=== PATIENT | male | born 1965 | race Caucasian/White ===

== ENCOUNTER 2016-08-10 13:44 | Inpatient (IN) | payer OTHER ==
[~2016-08-10] VITALS: Ht 190.5 cm; Wt 93.5 kg
[~2016-08-10 13:44] MED LIST: CLARITIN10 MG PO; KEFLEX500 MG PO
[2016-08-10 13:58] VITALS: BP 157/94
[2016-08-10 14:19] LABS: BASO % 0.8 % (0.0-1.0); EOS # 0.3 10*3/uL (0.0-0.4); EOS % 4.8 % (1.0-4.0); HEMATOCRIT 42.2 % (42.0-52.0); HEMOGLOBIN 14.1 g/dl (14.0-18.0); LYMPH # 1.1 10*3/uL (1.3-4.4); LYMPH % 21.3 % (27.0-41.0); MEAN CELL VOLUME 94.2 fl (80.0-94.0); MEAN CORPUSCULAR HGB 31.5 pg (27.0-31.0); MEAN CORPUSCULAR HGB CONC 33.4 g/dl (33.0-37.0); MEAN PLATELET VOLUME 8.7 fl (9.6-12.3); MONO # 0.5 10*3/uL (0.1-1.0); MONO % 8.9 % (3.0-9.0); NEUT # 3.3 10*3/uL (2.3-7.9); NEUT % 63.4 % (47.0-73.0); PLATELET COUNT AUTOMATED 219 10*3/uL (130-400); RED BLOOD COUNT 4.48 10*6/uL (4.50-5.90); RED CELL DISTRI WIDTH 13.6 % (0-14.5); WHITE BLOOD COUNT 5.3 10*3/uL (4.8-10.8)
[2016-08-10 14:32] LABS: INTERNATIONAL NORM RATIO 0.9 (2.0-3.5)
[2016-08-10 14:44] LABS: ALBUMIN 4.2 gm/dl (3.1-4.5); ALKALINE PHOSPHATASE 121 U/L (45-117); BILIRUBIN, TOTAL 0.5 mg/dl (0.2-1.0); BUN 11 mg/dl (7-24); C-REACTIVE PROTEIN 0.49 MG/DL (0-0.3); CARBON DIOXIDE 29 mmol/L (21-32); CHLORIDE 104 mmol/L (98-107); CPK 142 U/L (39-308); EST GLOM FILT AFRICAN AMERICAN > 60 ml/min; GLUCOSE 141 mg/dL (65-99); MAGNESIUM 2.3 mg/dL (1.5-2.1); POTASSIUM 3.6 mmol/L (3.5-5.1); SGOT/AST 36 IU/L (3-35); SGPT/ALT 42 U/L (12-78); SODIUM 142 mmol/L (136-145); TOTAL PROTEIN 7.8 gm/dL (6.4-8.2)
[2016-08-10 14:50] LABS: TROPONIN I < 0.015 ng/ml (<0.045)
[2016-08-10 16:17] LABS: LA>2 REFLEX 2 HR DRAW NOW
[2016-08-10 16:53] VITALS: BP 149/90
[2016-08-10 17:41] VITALS: BP 131/67
[2016-08-10 18:47] LABS: CKMB 1.3 ng/ml (0.5-3.6); CPK 145 U/L (39-308)
[2016-08-10 18:51] LABS: TROPONIN I < 0.015 ng/ml (<0.045)
[2016-08-10 20:00] VITALS: BP 140/90
[2016-08-11] VITALS: BP 128/78
[2016-08-11 00:08] LABS: PROTHROMBIN TIME 10.5 SECONDS (9.0-12.4)
[2016-08-11 00:28] LABS: CKMB 0.8 ng/ml (0.5-3.6); CPK 106 U/L (39-308); TROPONIN I < 0.015 ng/ml (<0.045)
[2016-08-11 07:08] LABS: BASO # 0.1 10*3/uL (0.0-0.1); BASO % 1.3 % (0.0-1.0); EOS # 0.4 10*3/uL (0.0-0.4); HEMATOCRIT 39.1 % (42.0-52.0); LYMPH # 1.9 10*3/uL (1.3-4.4); LYMPH % 35.7 % (27.0-41.0); MEAN CELL VOLUME 94.4 fl (80.0-94.0); MEAN CORPUSCULAR HGB 31.4 pg (27.0-31.0); MEAN CORPUSCULAR HGB CONC 33.2 g/dl (33.0-37.0); MEAN PLATELET VOLUME 9.3 fl (9.6-12.3); MONO # 0.4 10*3/uL (0.1-1.0); MONO % 7.4 % (3.0-9.0); NEUT # 2.6 10*3/uL (2.3-7.9); PLATELET COUNT AUTOMATED 214 10*3/uL (130-400); RED BLOOD COUNT 4.14 10*6/uL (4.50-5.90); RED CELL DISTRI WIDTH 13.9 % (0-14.5); WHITE BLOOD COUNT 5.4 10*3/uL (4.8-10.8)
[2016-08-11 07:15] LABS: CPK 96 U/L (39-308)
[2016-08-11 07:21] LABS: CKMB < 0.5 ng/ml (0.5-3.6); TROPONIN I < 0.015 ng/ml (<0.045)
[2016-08-11 07:41] LABS: ALBUMIN 3.4 gm/dl (3.1-4.5); ALKALINE PHOSPHATASE 103 U/L (45-117); BILIRUBIN, TOTAL 0.3 mg/dl (0.2-1.0); BUN 12 mg/dl (7-24); CARBON DIOXIDE 29 mmol/L (21-32); CHLORIDE 107 mmol/L (98-107); CHOLESTEROL 151 mg/dL (<200); EST GLOM FILT AFRICAN AMERICAN > 60 ml/min; GLUCOSE 93 mg/dL (65-99); MAGNESIUM 2.3 mg/dL (1.5-2.1); PHOSPHOROUS 2.6 mg/dL (2.5-4.9); SGOT/AST 29 IU/L (3-35); SGPT/ALT 37 U/L (12-78); SODIUM 145 mmol/L (136-145); TRIGLYCERIDES 135 mg/dl (<150); VLDL CHOLESTEROL 27 mg/dL (6-40)
[2016-08-11 07:43] LABS: PROTHROMBIN TIME 10.6 SECONDS (9.0-12.4)
[2016-08-11 07:47] LABS: FREE T4 0.95 ng/dl (0.76-1.46); HDL CHOLESTEROL 41 mg/dl (40-60); LDL CHOLESTEROL 83 mg/dL (9-159); TOTAL PROTEIN 6.8 gm/dL (6.4-8.2)
[2016-08-11 08:00] VITALS: BP 138/84
[2016-08-11 08:36] LABS: VITAMIN D, 25-HYDROXY 13.8 ng/mL (30-100)
[2016-08-11 09:27] LABS: FOLIC ACID 7.19 ng/mL (>5.38)
[2016-08-11 12:00] VITALS: BP 129/81
[2016-08-11 16:00] VITALS: BP 122/73
[2016-08-11 20:00] VITALS: BP 122/88
[2016-08-12] VITALS: BP 130/76
[2016-08-12 06:27] LABS: PROTHROMBIN TIME 10.8 SECONDS (9.0-12.4)
[2016-08-12 08:00] VITALS: BP 144/82
[2016-08-12] MEDS ORDERED: XARELTO STARTER20 MG PO (10:24)
[2016-08-12 12:00] VITALS: BP 127/74
[2016-08-14 14:06] LABS: ANTI-THROMBIN III ACTIVITY 98 % (75-135); LUPUS DRVVT 51.7 sec (0.0-44.0); PROTEIN S, FREE 137 % (57-157); PROTEIN S, TOTAL 124 % (60-150); PTT-LA 45.4 sec (0.0-43.6); PTT-LA MIX 41.6 sec (0.0-40.6)
[2016-08-14 18:09] LABS: LUPUS REFLEX INTERPRETATION Comment: (.)
== END 2016-08-12 14:54 | disposition home or self-care (01) | DRG 300 ==
LOC: ED 13:44 → EDHOLD 16:42 → 4E 16:42
PROVIDERS: Hospitalist; Internal Medicine; Student in an Organized Health Care Education/Training Program
DX: I82.402 Acute embolism and thrombosis of unspecified deep veins of left lower extremity (principal); E87.2 Acidosis; R73.9 Hyperglycemia, unspecified; E83.41 Hypermagnesemia; Z83.3 Family history of diabetes mellitus; Z82.49 Family history of ischemic heart disease and other diseases of the circulatory system

== ENCOUNTER → 2016-08-16 | Outpatient (CLI) | payer OTHER ==
[~2016-08-16] MED LIST changes: +XARELTO STARTER20 MG PO
== END | disposition home or self-care (01) ==
LOC: US 18:00
DX: E04.9 Nontoxic goiter, unspecified (principal)

== ENCOUNTER 2017-08-30 16:49 | Emergency (ER) | payer OTHER ==
[~2017-08-30] VITALS: Ht 187.9 cm; Wt 90.7 kg
[2017-08-30 17:03] LABS: BASO % 0.4 % (0.0-1.0); EOS # 0.1 10*3/uL (0.0-0.4); EOS % 1.4 % (1.0-4.0); HEMATOCRIT 43.8 % (42.0-52.0); HEMOGLOBIN 14.8 g/dl (14.0-18.0); LYMPH # 1.1 10*3/uL (1.3-4.4); LYMPH % 14.5 % (27.0-41.0); MEAN CELL VOLUME 94.2 fl (80.0-94.0); MEAN CORPUSCULAR HGB 31.8 pg (27.0-31.0); MEAN CORPUSCULAR HGB CONC 33.8 g/dl (33.0-37.0); MONO # 0.5 10*3/uL (0.1-1.0); MONO % 6.2 % (3.0-9.0); NEUT # 5.6 10*3/uL (2.3-7.9); NEUT % 77.2 % (47.0-73.0); PLATELET COUNT AUTOMATED 187 10*3/uL (130-400); RED BLOOD COUNT 4.65 10*6/uL (4.50-5.90); RED CELL DISTRI WIDTH 13.2 % (0-14.5); WHITE BLOOD COUNT 7.3 10*3/uL (4.8-10.8)
[2017-08-30 17:11] LABS: ACT PARTIAL THROMBO TIME 18.7 SECONDS (20.8-31.5); INTERNATIONAL NORM RATIO 0.9 (2.0-3.5)
[2017-08-30 17:24] LABS: ALKALINE PHOSPHATASE 113 U/L (45-117); BUN 16 mg/dl (7-24); CHLORIDE 107 mmol/L (98-107); SGOT/AST 45 IU/L (3-35); SGPT/ALT 67 U/L (12-78); SODIUM 141 mmol/L (136-145)
[2017-08-30 17:27] LABS: TROPONIN I 0.131 ng/ml (<0.045)
== END 2017-08-30 17:29 | disposition short-term general hospital (02) ==
LOC: ED 16:49
PROVIDERS: Student in an Organized Health Care Education/Training Program
DX: I21.29 ST elevation (STEMI) myocardial infarction involving other sites (principal); Z86.718 Personal history of other venous thrombosis and embolism

== ENCOUNTER → 2018-01-22 | Outpatient (CLI) | payer OTHER ==
[~2018-01-22] MED LIST changes: +ALDACTONE25 MG PO; +ASPIRIN CHEWABL81 MG PO; +ATORVASTATIN CA40 M1 PO; +BRILINTA90 M1 PO; +ENTRESTO 49 MG1 EACH PO; +METOPROLOL SUCC50 M1 PO; +PANTOPRAZOLE SO40 MG PO
[2018-01-22 09:26] LABS: BASO # 0.1 10*3/uL (0.0-0.1); BASO % 0.7 % (0.0-1.0); EOS # 0.2 10*3/uL (0.0-0.4); EOS % 3.3 % (1.0-4.0); HEMATOCRIT 45.4 % (42.0-52.0); HEMOGLOBIN 14.7 g/dl (14.0-18.0); LYMPH # 1.9 10*3/uL (1.3-4.4); LYMPH % 25.5 % (27.0-41.0); MEAN CORPUSCULAR HGB 31.1 pg (27.0-31.0); MEAN CORPUSCULAR HGB CONC 32.4 g/dl (33.0-37.0); MEAN PLATELET VOLUME 9.6 fl (9.6-12.3); MONO # 0.6 10*3/uL (0.1-1.0); MONO % 7.8 % (3.0-9.0); NEUT # 4.6 10*3/uL (2.3-7.9); NEUT % 62.3 % (47.0-73.0); PLATELET COUNT AUTOMATED 208 10*3/uL (130-400); RED BLOOD COUNT 4.73 10*6/uL (4.50-5.90); RED CELL DISTRI WIDTH 13.3 % (0-14.5); WHITE BLOOD COUNT 7.3 10*3/uL (4.8-10.8)
[2018-01-22 10:05] LABS: ALKALINE PHOSPHATASE 130 U/L (45-117); BUN 10 mg/dl (7-24); CHLORIDE 105 mmol/L (98-107); CREATININE 1.18 mg/dL (0.70-1.30); POTASSIUM 4.5 mmol/L (3.5-5.1); SGOT/AST 18 IU/L (3-35); SGPT/ALT 27 U/L (12-78); SODIUM 140 mmol/L (136-145); TOTAL PROTEIN 7.8 gm/dL (6.4-8.2)
== END | disposition home or self-care (01) ==
LOC: LAB 08:53
PROVIDERS: Internal Medicine Advanced Heart Failure and Transplant Cardiology; Nurse Practitioner Family
DX: I25.10 Atherosclerotic heart disease of native coronary artery without angina pectoris (principal); E83.41 Hypermagnesemia; E78.4 Other hyperlipidemia; I50.22 Chronic systolic (congestive) heart failure; I25.5 Ischemic cardiomyopathy

== ENCOUNTER → 2018-02-19 | Outpatient (CLI) | payer OTHER | END | disposition home or self-care (01) | LOC: LAB 11:49 | DX: I50.22 Chronic systolic (congestive) heart failure (principal); I25.5 Ischemic cardiomyopathy ==

== ENCOUNTER → 2018-02-20 | Outpatient (CLI) | payer OTHER ==
[2018-02-20 13:19] LABS: BUN 16 mg/dl (7-24); CHLORIDE 106 mmol/L (98-107); CREATININE 1.19 mg/dL (0.70-1.30); POTASSIUM 4.1 mmol/L (3.5-5.1); SODIUM 140 mmol/L (136-145)
== END | disposition home or self-care (01) ==
LOC: LAB 12:31
DX: I50.9 Heart failure, unspecified (principal)

== ENCOUNTER 2018-03-01 18:38 | Inpatient (IN) | payer OTHER ==
[~2018-03-01] VITALS: Ht 187.9 cm; Wt 96.8 kg
--- NOTE | ~2018-03-01 | PR ---
[place], [place] PROGRESS NOTE NAME: HUMBERTO BARBOSA UNIT #: [id number] ROOM: 403 DOCTOR: JADA TINOCO MD BIRTHDATE: [birth year] DOS: 03/03/2018 CARDIOLOGY PROGRESS NOTE SUBJECTIVE: The patient was seen today, 03/03/2018, in the Cardiology Department just prior to his stress test. He is a 52-year-old man with a history of a myocardial infarction in 08/2017 and subsequent ischemic cardiomyopathy. The patient has felt well since yesterday. His EKG shows no acute changes and his cardiac biomarkers have remained negative. PHYSICAL EXAMINATION: VITAL SIGNS: Today, his pulse is 72 and regular, blood pressure is 102/60. He weighs 96.8 kg and has a body mass index of 27.4. NECK: Supple. He has no jugular distention. Carotids are full. LUNGS: Respirations are unlabored. His chest is clear to auscultation and percussion. HEART: Has a regular rhythm. He has an S4 gallop. I did not hear an S3 today. ABDOMEN: Soft. EXTREMITIES: Showed no edema. IMPRESSION: 1. Atypical chest pain. The patient shows no sign of acute coronary syndrome. 2. History of coronary artery disease, status post extensive anterior wall myocardial infarction complicated by left ventricular dysfunction and left ventricular apical thrombus in 08/2017. 3. Ischemic cardiomyopathy with limited left ventricular systolic function. PLAN: We will proceed with an exercise myocardial perfusion study today. If that shows no evidence for ischemia, he can be discharged for further management as an outpatient. At this point; however, I believe that he has achieved maximal tolerated doses of appropriate guideline directed medical therapies. [facility] and I thank the hospitalist physicians for asking our advice regarding the patient's care. [place], [place] PROGRESS NOTE NAME: DONN BARBOSASWORTH Reggie UNIT #: [id number] ROOM: 403 DOCTOR: JADA TINOCO MD BIRTHDATE: [birth year] JADA TINOCO MD CM:PNTRANS 0 1500 JADA TINOCO MD 03/03/18 1612 interface
--- NOTE | ~2018-03-01 | EKG ---
[place], [place] ELECTROCARDIOGRAM REPORT NAME: HUMBERTO BARBOSA UNIT #: [id number] ROOM: 411 DOCTOR: CAROLIN DRAFT REPORT BIRTHDATE: [birth year] [facility] Test Date: 2018-03-01 Test Time: 21:45:29 Pat Name: HUMBERTO BARBOSA Department: Room: 411 Gender: M Cost Analyst: Catracho Romo : 1965 Requested By: MARIE VELÁSQUEZ DNP Order Number: [id number] Reading MD: Catracho Rangel MD Measurements Intervals [place] Rate: 59 P: 24 [place]: 152 QRS: -30 QRSD: 83 T: 103 QT: 389 QTc: 386 Interpretive Statements Sinus rhythm Probable left atrial enlargement Left axis deviation Low voltage, precordial leads Consider anterior infarct Nonspecific T abnormalities, lateral leads No change from earlier ECG this date. Electronically Signed On 03-02-2018 13:51:56 PST by Catracho Rangel MD CM:EKGRPT:ELECTROCARDIOGRAM REPORT 1351 MARIE VELÁSQUEZ DNP EPIPHANY DRAFT REPORT MARIE VELÁSQUEZ DNP
--- NOTE | ~2018-03-01 | EKG ---
[place], [place] ELECTROCARDIOGRAM REPORT NAME: HUMBERTO BARBOSA UNIT #: [id number] ROOM: 411 DOCTOR: CAROLIN DRAFT REPORT BIRTHDATE: [birth year] [facility] Test Date: 2018-03-01 Test Time: 18:53:56 Pat Name: HUMBERTO BARBOSA Department: Room: 411 Gender: M Financial Director: Binh Henry : 1965 Requested By: MUNDO ALEGRIA Order Number: [id number] Reading MD: Catracho Rangel MD Measurements Intervals [place] Rate: 84 P: 42 [place]: 155 QRS: 96 QRSD: 97 T: 81 QT: 391 QTc: 463 Interpretive Statements Sinus rhythm Anterior infarct, old Baseline wander in lead(s) V2 No change from earlier ECG this date. Electronically Signed On 03-02-2018 13:51:03 PST by Catracho Rangel MD CM:EKGRPT:ELECTROCARDIOGRAM REPORT 1853 1351 MUNDO COE DRAFT REPORT MUNDO ALEGRIA MD
--- NOTE | ~2018-03-01 | EKG ---
[place], [place] ELECTROCARDIOGRAM REPORT NAME: HUMBERTO BARBOSA UNIT #: [id number] ROOM: 411 DOCTOR: CAROLIN DRAFT REPORT BIRTHDATE: [birth year] [facility] Test Date: 2018-03-01 Test Time: 18:39:58 Pat Name: HUMBERTO BARBOSA Department: Room: 411 Gender: M Solar Installer Pv: Catracho Romo : 1965 Requested By: MUNDO ALEGRIA Order Number: [id number] Reading MD: Catracho Rangel MD Measurements Intervals [place] Rate: 94 P: 44 [place]: 146 QRS: 102 QRSD: 85 T: 75 QT: 361 QTc: 452 Interpretive Statements Sinus rhythm Probable left atrial enlargement Anterior infarct, old Electronically Signed On 03-02-2018 13:50:24 PST by Catracho Rangel MD CM:EKGRPT:ELECTROCARDIOGRAM REPORT 1839 1350 MUNDO COE DRAFT REPORT MUNDO ALEGRIA MD
--- NOTE | ~2018-03-01 | CON ---
[place], [place] REPORT OF CONSULTATION NAME: HUMBERTO BARBOSA UNIT #: [id number] ROOM: 411 DOCTOR: JADA TINOCO MD BIRTHDATE: [birth year] DOS: 03/02/2018 CARDIOLOGY CONSULTATION REASON FOR CONSULTATION: Chest pain. HISTORY OF PRESENT ILLNESS: The patient was seen at his bedside with his in attendance today, 03/02/2018 for evaluation of chest pain. He is a 52-year-old man who initially presented on 08/30/2017 with severe chest pain. He was found to have evidence for an acute anterior ST elevation myocardial infarction and was sent by helicopter to [facility], where he was taken directly to the catheterization laboratory. Dr. David Tong did catheterization and found 100% proximal LAD stenosis and an ejection fraction of 35%. He had no other significant coronary disease. He underwent placement of a 2.5 mm balloon followed by placement of a 3.5 x 18 mm drug-eluting stent. An echocardiogram 09/01/2017 showed that his ejection fraction was 35-40% with a laminated apical thrombus. He was treated with Xarelto, aspirin and Brilinta. A followup echocardiogram on 12/16/2017 showed mild left ventricular enlargement with an ejection fraction between 25 and 30%. He also had stage 3 diastolic relaxation abnormalities. A laminated ventricular thrombus was placed at the apex. The patient has been placed on Entresto and this has been titrated up to the target dose of Entresto 98/103 one pill twice a day. He has also been placed on metoprolol succinate 50 mg once a day at bedtime. He did not tolerate higher doses because of bradycardia and lightheadedness. We have been increasing his medications slowly because of low blood pressure. He was seen by a heart failure specialist, Dr. Boris Henson on 01/13/2018 and she agreed with our plan. He was doing reasonably well and noticed less dyspnea. The patient was well until yesterday. He ate some hot wings and a chili dog and subsequently developed epigastric pain with radiation into his chest. He felt that it was heartburn and states that he has had heartburn in the past, but typically this would resolve if he drank some fluids and burped. Yesterday, the pain persisted and he became concerned. He therefore presented to the Emergency Room. Since admission, his pains have resolved spontaneously. He has no acute EKG changes or any elevation of cardiac troponin. PAST MEDICAL HISTORY: Includes: 1. Strong family history of atherosclerotic heart disease. 2. Presentation with acute anterior ST elevation ME on 08/30/2017. 3. Catheterization 08/30/2017, left main and circumflex free of disease. Right coronary artery dominant with mild disease. LAD 100% proximally occluded. Ejection fraction 35%. The patient underwent percutaneous intervention utilizing a 2.5 mm balloon followed by a 3.5 x 18 mm drug-eluting Campbell stent. 4. Echocardiogram 09/01/2017, ejection fraction of 35-40% with laminated apical thrombus. The patient placed on rivaroxaban and aspirin was stopped at that point. [place], [place] REPORT OF CONSULTATION NAME: HUMBERTO BARBOSA UNIT #: [id number] ROOM: 411 DOCTOR: JADA TINOCO MD BIRTHDATE: [birth year] 5. Echocardiogram 12/16/2017, mild left ventricular enlargement with ejection fraction 25-30%, stage 3 diastolic relaxation abnormalities, akinesis of the anterior wall septum and apex with laminated ventricular thrombus present, likely to be organized. 6. History of gastroesophageal reflux disease. REVIEW OF SYSTEMS: The patient denies diplopia, loss of vision, lightheadedness or syncope. He denies any focal weakness. He denies nausea or vomiting. He did have the epigastric pain and pressure noted above. He denies fevers, chills, sweats or recent weight change. He denies orthopnea or PND. He denies any radiation of the discomfort and specifically denies any throat pain or radiation into his left arm as was experienced with his ME. He denies palpitations, lightheadedness, syncope, orthopnea or PND. He denies any pedal edema. He denies hemoptysis or hematemesis. He denies change in bowel or bladder habits. He denies blood in his stools or urine. He denies any focal weakness. He denies heat or cold intolerance. He denies polyuria or polydipsia. The remainder of the review of systems is negative except as noted above. MEDICATIONS PRIOR TO ADMISSION: Aspirin 81 mg daily, ticagrelor 90 mg b.i.d., spironolactone 25 mg daily, metoprolol succinate 50 mg at bedtime, atorvastatin 40 mg at bedtime, Entresto 98/103 one tablet b.i.d. ALLERGIES: The patient has no known drug allergies. FAMILY HISTORY: Positive for multiple family members with early coronary disease. SOCIAL HISTORY: The patient is and lives with his . He does work doing physical work. He does not smoke or consume alcohol. PHYSICAL EXAMINATION: GENERAL: The patient is a well-nourished white male who is awake, alert and oriented. VITAL SIGNS: Pulse is 58 and regular, blood pressure is 106/72. He is afebrile. He weighs 96.8 kg and has a body mass index of 27.4. HEENT: Normocephalic and atraumatic. Extraocular muscles are intact. Sclerae are clear. Pupils are equal, round and react to light. The oral mucosa is moist. Tongue is midline. NECK: Supple. He has no jugular distention. Carotids are full. He has no bruits. He has no neck or supraclavicular masses, and no thyromegaly. LUNGS: Respirations are unlabored. His chest is clear to auscultation and percussion. He has no presacral edema or chest wall tenderness. CARDIOVASCULAR: His heart has a regular rhythm. He has a fourth heart sound. The PMI is not displaced laterally. He has a fourth heart sound, but no third heart sound or murmur. There is no precordial heave, lift or thrill. ABDOMEN: Soft and normally active without masses, organomegaly or bruits. EXTREMITIES: Showed no edema. Peripheral pulses were easily palpated in the feet. [place], [place] REPORT OF CONSULTATION NAME: HUMBERTO BARBOSA UNIT #: [id number] ROOM: 411 DOCTOR: JADA TINOCO MD BIRTHDATE: [birth year] DIAGNOSTIC DATA: I reviewed his electrocardiogram, which showed sinus rhythm, left atrial enlargement and evidence for an old anterior wall myocardial infarction. IMPRESSIONS: 1. Atypical chest pain. The patient shows no signs of any acute coronary syndrome. 2. History of coronary artery disease status post extensive anterior wall myocardial infarction complicated by left ventricular dysfunction and left ventricular apical thrombus. 3. Ischemic cardiomyopathy with limited left ventricular systolic function. PLAN: The patient has been titrated up to I believe maximally tolerated doses of Sacubitril and metoprolol. He is also on spironolactone, aspirin, etc. We will continue to monitor him today and plan an exercise myocardial perfusion study tomorrow. If that shows no evidence for ischemia, then he can probably be discharged after that. [facility] Cardiology and I thank the hospitalist physicians for asking our advice regarding the patient's care. JADA TINOCO MD CM:CONSTR:REPORT OF CONSULTATION 1111 03/03/18 0020 interface
--- NOTE | ~2018-03-01 | EKG ---
[place], [place] ELECTROCARDIOGRAM REPORT NAME: HUMBERTO BARBOSA UNIT #: [id number] ROOM: 411 DOCTOR: CAROLIN DRAFT REPORT BIRTHDATE: [birth year] [facility] Test Date: 2018-03-02 Test Time: 00:38:14 Pat Name: HUMBERTO BARBOSA Department: Room: 411 Gender: M Web Development Manager: Catracho Romo : 1965 Requested By: MUNDO ALEGRIA Order Number: [id number] Reading MD: Catracho Rangel MD Measurements Intervals [place] Rate: 49 P: 27 [place]: 154 QRS: 45 QRSD: 83 T: 94 QT: 451 QTc: 408 Interpretive Statements Sinus bradycardia Probable left atrial enlargement Anterior infarct, old No change from earlier ECG this date. Electronically Signed On 03-02-2018 13:53:26 PST by Catracho Rangel MD CM:EKGRPT:ELECTROCARDIOGRAM REPORT 0038 1353 MUNDO ALEGRIA MD EPIPHPARKER DRAFT REPORT MUNDO ALEGRIA MD
[~2018-03-01 18:38] MED LIST changes: -ALDACTONE25 MG PO; -ASPIRIN CHEWABL81 MG PO; -ATORVASTATIN CA40 M1 PO; -BRILINTA90 M1 PO; -ENTRESTO 49 MG1 EACH PO; -METOPROLOL SUCC50 M1 PO; -PANTOPRAZOLE SO40 MG PO
[2018-03-01 18:40] VITALS: BP 140/95
[2018-03-01 19:05] VITALS: BP 116/76
[2018-03-01 19:05] LABS: BASO # 0.1 10*3/uL (0.0-0.1); BASO % 0.9 % (0.0-1.0); EOS # 0.2 10*3/uL (0.0-0.4); EOS % 3.6 % (1.0-4.0); HEMATOCRIT 43.6 % (42.0-52.0); HEMOGLOBIN 14.4 g/dl (14.0-18.0); LYMPH # 1.8 10*3/uL (1.3-4.4); LYMPH % 27.4 % (27.0-41.0); MEAN CELL VOLUME 95.8 fl (80.0-94.0); MEAN CORPUSCULAR HGB 31.6 pg (27.0-31.0); MEAN PLATELET VOLUME 9.6 fl (9.6-12.3); MONO # 0.8 10*3/uL (0.1-1.0); MONO % 11.8 % (3.0-9.0); NEUT # 3.6 10*3/uL (2.3-7.9); PLATELET COUNT AUTOMATED 213 10*3/uL (130-400); RED BLOOD COUNT 4.55 10*6/uL (4.50-5.90); RED CELL DISTRI WIDTH 14.3 % (0-14.5); WHITE BLOOD COUNT 6.5 10*3/uL (4.8-10.8)
[2018-03-01 19:16] LABS: ACT PARTIAL THROMBO TIME 20.2 SECONDS (20.8-31.5)
[2018-03-01 19:21] LABS: ALBUMIN 4.1 gm/dl (3.1-4.5); ALKALINE PHOSPHATASE 126 U/L (45-117); BUN 16 mg/dl (7-24); CHLORIDE 108 mmol/L (98-107); POTASSIUM 3.9 mmol/L (3.5-5.1); SGOT/AST 20 IU/L (3-35); SGPT/ALT 27 U/L (12-78); SODIUM 142 mmol/L (136-145); TOTAL PROTEIN 8.3 gm/dL (6.4-8.2)
[2018-03-01 19:27] VITALS: BP 111/76
[2018-03-01 19:30] LABS: TROPONIN I < 0.015 ng/ml (<0.045)
[2018-03-01 20:12] VITALS: BP 120/83
[2018-03-01] MEDS ORDERED: ATORVASTATIN CA40 M1 PO (20:16)
[2018-03-01] MEDS ORDERED: ASPIRIN CHEWABL81 MG PO (20:16)
[2018-03-01] MEDS ORDERED: METOPROLOL SUCC50 M1 PO (20:17)
[2018-03-01] MEDS ORDERED: BRILINTA90 M1 PO (20:18)
[2018-03-01] MEDS ORDERED: ALDACTONE25 MG PO (20:18)
[2018-03-01] MEDS ORDERED: ENTRESTO 49 MG1 EACH PO (20:18)
[2018-03-02] VITALS: BP 106/72
[2018-03-02 08:05] VITALS: BP 100/70
[2018-03-02 12:00] VITALS: BP 90/60
[2018-03-02 16:00] VITALS: BP 101/69
[2018-03-02 20:00] VITALS: BP 101/66
[2018-03-03] VITALS: BP 90/63
[2018-03-03 08:00] VITALS: BP 102/60
[2018-03-03 12:00] VITALS: BP 91/59
[2018-03-03 16:00] VITALS: BP 97/66
[2018-03-03] MEDS ORDERED: PANTOPRAZOLE SO40 MG PO (16:18)
== END 2018-03-03 18:30 | disposition home or self-care (01) | DRG 313 ==
LOC: ED 18:38 → 4E 19:39 → EDHOLD 19:39 → 4E 19:54
PROVIDERS: Emergency Medicine
DX: R07.9 Chest pain, unspecified (principal); I82.409 Acute embolism and thrombosis of unspecified deep veins of unspecified lower extremity; I50.32 Chronic diastolic (congestive) heart failure; K21.9 Gastro-esophageal reflux disease without esophagitis; E78.00 Pure hypercholesterolemia, unspecified; E83.41 Hypermagnesemia; K76.0 Fatty (change of) liver, not elsewhere classified; D64.0 Hereditary sideroblastic anemia; D64.9 Anemia, unspecified; I25.5 Ischemic cardiomyopathy; I25.2 Old myocardial infarction; Z83.3 Family history of diabetes mellitus; Z82.49 Family history of ischemic heart disease and other diseases of the circulatory system

== ENCOUNTER → 2018-03-05 | Outpatient (CLI) | payer OTHER ==
[~2018-03-05] MED LIST changes: +ALDACTONE25 MG PO; +ASPIRIN CHEWABL81 MG PO; +ATORVASTATIN CA40 M1 PO; +BRILINTA90 M1 PO; +ENTRESTO 49 MG1 EACH PO; +METOPROLOL SUCC50 M1 PO; +PANTOPRAZOLE SO40 MG PO
[2018-03-05 09:31] LABS: BUN 13 mg/dl (7-24); CHLORIDE 106 mmol/L (98-107); CREATININE 1.17 mg/dL (0.70-1.30); POTASSIUM 4.7 mmol/L (3.5-5.1); SODIUM 140 mmol/L (136-145)
== END | disposition home or self-care (01) ==
LOC: LAB 08:51
PROVIDERS: Nurse Practitioner Adult Health
DX: I50.22 Chronic systolic (congestive) heart failure (principal)

== ENCOUNTER → 2018-04-08 | Outpatient (CLI) | payer OTHER ==
[2018-04-08 09:04] LABS: BASO # 0.1 10*3/uL (0.0-0.1); BASO % 0.8 % (0.0-1.0); EOS # 0.2 10*3/uL (0.0-0.4); HEMATOCRIT 45.5 % (42.0-52.0); HEMOGLOBIN 14.6 g/dl (14.0-18.0); LYMPH # 1.2 10*3/uL (1.3-4.4); LYMPH % 15.1 % (27.0-41.0); MEAN CELL VOLUME 96.8 fl (80.0-94.0); MEAN CORPUSCULAR HGB 31.1 pg (27.0-31.0); MEAN CORPUSCULAR HGB CONC 32.1 g/dl (33.0-37.0); MEAN PLATELET VOLUME 9.7 fl (9.6-12.3); MONO # 0.6 10*3/uL (0.1-1.0); MONO % 7.8 % (3.0-9.0); NEUT # 5.8 10*3/uL (2.3-7.9); PLATELET COUNT AUTOMATED 190 10*3/uL (130-400)
[2018-04-08 09:32] LABS: BUN 12 mg/dl (7-24); CHLORIDE 106 mmol/L (98-107); CHOLESTEROL 90 mg/dL (<200); CREATININE 1.27 mg/dL (0.70-1.30); HDL CHOLESTEROL 38 mg/dl (40-60); LDL CHOLESTEROL 29 mg/dL (9-159); SGOT/AST 17 IU/L (3-35); SGPT/ALT 26 U/L (12-78); SODIUM 140 mmol/L (136-145); TOTAL PROTEIN 8.3 gm/dL (6.4-8.2); TRIGLYCERIDES 114 mg/dl (<150); VLDL CHOLESTEROL 23 mg/dL (6-40)
[2018-04-08 09:37] LABS: ALKALINE PHOSPHATASE 132 U/L (45-117)
[2018-04-09 12:05] LABS: ANTI-SMOOTH MUSCLE ANTIBODY 10 Units (0-19)
== END | disposition home or self-care (01) ==
LOC: LAB 08:29
PROVIDERS: Nurse Practitioner Family
DX: I11.0 Hypertensive heart disease with heart failure (principal); I50.22 Chronic systolic (congestive) heart failure; I25.10 Atherosclerotic heart disease of native coronary artery without angina pectoris; I25.5 Ischemic cardiomyopathy; E78.00 Pure hypercholesterolemia, unspecified; K76.0 Fatty (change of) liver, not elsewhere classified; E78.49 Other hyperlipidemia; K21.9 Gastro-esophageal reflux disease without esophagitis; E83.41 Hypermagnesemia

== ENCOUNTER → 2018-05-04 | Day surgery (SDC) | payer OTHER ==
[~2018-05-04] VITALS: Ht 187.9 cm; Wt 90.7 kg
[~2018-05-04] MED LIST changes: +RANITIDINE HCL150 M1 PO
[2018-05-04 09:22] VITALS: BP 81/47
[2018-05-04 09:38] VITALS: BP 120/64
[2018-05-04 09:53] VITALS: BP 100/64
== END | disposition home or self-care (01) ==
LOC: SDC 04-30 12:30
DX: K29.50 Unspecified chronic gastritis without bleeding (principal); K21.0 Gastro-esophageal reflux disease with esophagitis; I25.10 Atherosclerotic heart disease of native coronary artery without angina pectoris; I25.2 Old myocardial infarction; E78.5 Hyperlipidemia, unspecified; Z98.890 Other specified postprocedural states; Z86.718 Personal history of other venous thrombosis and embolism; Z95.5 Presence of coronary angioplasty implant and graft; Z79.899 Other long term (current) drug therapy; Z83.3 Family history of diabetes mellitus; Z82.49 Family history of ischemic heart disease and other diseases of the circulatory system

== ENCOUNTER → 2018-05-28 | Outpatient (CLI) | payer OTHER ==
[2018-05-28 10:25] LABS: ALBUMIN 3.9 gm/dl (3.1-4.5); ALKALINE PHOSPHATASE 118 U/L (45-117); BUN 12 mg/dl (7-24); CHLORIDE 110 mmol/L (98-107); CREATININE 1.35 mg/dL (0.70-1.30); POTASSIUM 4.1 mmol/L (3.5-5.1); SGOT/AST 20 IU/L (3-35); SGPT/ALT 24 U/L (12-78); SODIUM 146 mmol/L (136-145); TOTAL PROTEIN 7.7 gm/dL (6.4-8.2)
== END | disposition home or self-care (01) ==
LOC: LAB 09:36
PROVIDERS: Internal Medicine Advanced Heart Failure and Transplant Cardiology
DX: I11.0 Hypertensive heart disease with heart failure (principal); I50.22 Chronic systolic (congestive) heart failure; E78.5 Hyperlipidemia, unspecified

== ENCOUNTER → 2018-09-02 | Outpatient (CLI) | payer OTHER ==
[2018-09-02 09:35] LABS: BUN 12 mg/dl (7-24); CHLORIDE 104 mmol/L (98-107); CREATININE 1.18 mg/dL (0.70-1.30); SODIUM 139 mmol/L (136-145)
== END | disposition home or self-care (01) ==
LOC: LAB 08:49
PROVIDERS: Internal Medicine Advanced Heart Failure and Transplant Cardiology
DX: I25.10 Atherosclerotic heart disease of native coronary artery without angina pectoris (principal); I51.3 Intracardiac thrombosis, not elsewhere classified; I50.22 Chronic systolic (congestive) heart failure; E78.5 Hyperlipidemia, unspecified

== ENCOUNTER → 2018-09-30 | Outpatient (CLI) | payer OTHER ==
[2018-09-30 09:20] LABS: BASO # 0.1 10*3/uL (0.0-0.1); EOS # 0.3 10*3/uL (0.0-0.4); EOS % 4.6 % (1.0-4.0); HEMATOCRIT 43.2 % (42.0-52.0); HEMOGLOBIN 14.3 g/dl (14.0-18.0); LYMPH # 1.7 10*3/uL (1.3-4.4); LYMPH % 27.4 % (27.0-41.0); MEAN CELL VOLUME 100.9 fl (80.0-94.0); MEAN CORPUSCULAR HGB 33.4 pg (27.0-31.0); MEAN CORPUSCULAR HGB CONC 33.1 g/dl (33.0-37.0); MEAN PLATELET VOLUME 9.3 fl (9.6-12.3); MONO # 0.6 10*3/uL (0.1-1.0); MONO % 9.1 % (3.0-9.0); NEUT # 3.5 10*3/uL (2.3-7.9); NEUT % 57.6 % (47.0-73.0); PLATELET COUNT AUTOMATED 178 10*3/uL (130-400); RED BLOOD COUNT 4.28 10*6/uL (4.50-5.90); RED CELL DISTRI WIDTH 14.5 % (0-14.5); WHITE BLOOD COUNT 6.1 10*3/uL (4.8-10.8)
[2018-09-30 09:44] LABS: BUN 14 mg/dl (7-24); CHLORIDE 105 mmol/L (98-107); CREATININE 1.18 mg/dL (0.70-1.30); POTASSIUM 4.3 mmol/L (3.5-5.1); SODIUM 141 mmol/L (136-145)
== END | disposition home or self-care (01) ==
LOC: LAB 08:59
PROVIDERS: Internal Medicine Cardiovascular Disease
DX: I25.5 Ischemic cardiomyopathy (principal); I50.22 Chronic systolic (congestive) heart failure

== ENCOUNTER → 2018-10-15 | Outpatient (CLI) | payer OTHER | END | disposition home or self-care (01) | LOC: RAD 09:32 | DX: S63.502A Unspecified sprain of left wrist, initial encounter (principal); M19.032 Primary osteoarthritis, left wrist; M25.432 Effusion, left wrist; X58.XXXA Exposure to other specified factors, initial encounter; Y93.89 Activity, other specified; Y92.89 Other specified places as the place of occurrence of the external cause; Y99.8 Other external cause status ==

== ENCOUNTER → 2019-05-12 | Outpatient (CLI) | payer OTHER | LOC: CARD 05-11 13:00 | DX: I34.0 Nonrheumatic mitral (valve) insufficiency (principal); I50.22 Chronic systolic (congestive) heart failure; K21.9 Gastro-esophageal reflux disease without esophagitis ==

== ENCOUNTER 2019-06-02 17:13 | Emergency (ER) | payer OTHER ==
[~2019-06-02] VITALS: Ht 187.9 cm; Wt 97.5 kg
[2019-06-02] MEDS ORDERED: CLINDAMYCIN HC300 MG PO (18:07)
== END 2019-06-02 18:30 | disposition home or self-care (01) ==
LOC: ED 17:13
DX: K08.89 Other specified disorders of teeth and supporting structures (principal); K03.81 Cracked tooth; I25.2 Old myocardial infarction; Z79.899 Other long term (current) drug therapy; Z79.82 Long term (current) use of aspirin; Z86.718 Personal history of other venous thrombosis and embolism

== ENCOUNTER 2019-09-27 08:21 | Emergency (ER) | payer OTHER ==
[~2019-09-27] VITALS: Ht 187.9 cm; Wt 97.5 kg
[~2019-09-27 08:21] MED LIST changes: +CLINDAMYCIN HC300 MG PO
[2019-09-27 08:55] LABS: BILIRUBIN NEGATIVE (NEGATIVE); BLOOD NEGATIVE (NEGATIVE); CLARITY CLEAR (CLEAR); COLOR STRAW (YELLOW); GLUCOSE NEGATIVE (NEGATIVE); KETONE NEGATIVE (NEGATIVE); LEUKO ESTERASE NEGATIVE (NEGATIVE); NITRITE NEGATIVE (NEGATIVE); UROBILINOGEN 0.2 E.U./dl (0.2-1.0)
[2019-09-27 09:06] LABS: BACTERIA TRACE; RBC 0-2 rbc/hpf (0-2)
[2019-09-27 09:47] LABS: BASO # 0.1 10*3/uL (0.0-0.1); BASO % 1.2 % (0.0-1.0); EOS # 0.2 10*3/uL (0.0-0.4); EOS % 3.9 % (1.0-4.0); HEMATOCRIT 41.8 % (42.0-52.0); LYMPH # 1.2 10*3/uL (1.3-4.4); LYMPH % 20.8 % (27.0-41.0); MEAN CELL VOLUME 98.6 fl (80.0-94.0); MEAN CORPUSCULAR HGB 33.3 pg (27.0-31.0); MEAN CORPUSCULAR HGB CONC 33.7 g/dl (33.0-37.0); MEAN PLATELET VOLUME 9.3 fl (9.6-12.3); MONO # 0.4 10*3/uL (0.1-1.0); MONO % 7.5 % (3.0-9.0); NEUT # 3.9 10*3/uL (2.3-7.9); NEUT % 66.4 % (47.0-73.0); PLATELET COUNT AUTOMATED 170 10*3/uL (130-400); RED BLOOD COUNT 4.24 10*6/uL (4.50-5.90); RED CELL DISTRI WIDTH 13.5 % (0-14.5); WHITE BLOOD COUNT 5.9 10*3/uL (4.8-10.8)
[2019-09-27 10:03] LABS: ALBUMIN 3.8 gm/dl (3.1-4.5); ALKALINE PHOSPHATASE 108 U/L (45-117); BUN 12 mg/dl (7-24); CHLORIDE 107 mmol/L (98-107); LIPASE 129 U/L (73-393); POTASSIUM 4.5 mmol/L (3.5-5.1); SGOT/AST 22 IU/L (3-35); SODIUM 140 mmol/L (136-145); TOTAL PROTEIN 7.6 gm/dL (6.4-8.2)
[2019-09-27 10:12] LABS: SGPT/ALT 33 U/L (12-78)
== END 2019-09-27 11:04 | disposition home or self-care (01) ==
LOC: ED 08:21
PROVIDERS: Emergency Medicine; Nurse Practitioner Family
DX: R10.31 Right lower quadrant pain (principal); I25.2 Old myocardial infarction; I10 Essential (primary) hypertension; E78.5 Hyperlipidemia, unspecified; Z95.5 Presence of coronary angioplasty implant and graft; Z95.0 Presence of cardiac pacemaker; Z86.718 Personal history of other venous thrombosis and embolism; Z79.2 Long term (current) use of antibiotics; Z79.82 Long term (current) use of aspirin; Z79.899 Other long term (current) drug therapy

== ENCOUNTER → 2020-03-15 | Outpatient (CLI) | payer OTHER ==
[2020-03-15 09:54] LABS: BASO # 0.1 10*3/uL (0.0-0.1); BASO % 0.9 % (0.0-1.0); EOS # 0.2 10*3/uL (0.0-0.4); EOS % 3.3 % (1.0-4.0); HEMATOCRIT 46.6 % (42.0-52.0); LYMPH # 1.9 10*3/uL (1.3-4.4); LYMPH % 29.7 % (27.0-41.0); MEAN CELL VOLUME 97.7 fl (80.0-94.0); MEAN CORPUSCULAR HGB 32.3 pg (27.0-31.0); MEAN PLATELET VOLUME 9.3 fl (9.6-12.3); MONO # 0.5 10*3/uL (0.1-1.0); MONO % 7.9 % (3.0-9.0); NEUT # 3.7 10*3/uL (2.3-7.9); NEUT % 57.9 % (47.0-73.0); PLATELET COUNT AUTOMATED 200 10*3/uL (130-400); RED BLOOD COUNT 4.77 10*6/uL (4.50-5.90); RED CELL DISTRI WIDTH 12.9 % (0-14.5); WHITE BLOOD COUNT 6.4 10*3/uL (4.8-10.8)
[2020-03-15 10:35] LABS: ALBUMIN 4.6 gm/dl (3.1-4.5); ALKALINE PHOSPHATASE 115 U/L (45-117); BUN 14 mg/dl (7-24); CHLORIDE 102 mmol/L (98-107); CHOLESTEROL 139 mg/dL (<200); CREATININE 1.18 mg/dL (0.70-1.30); HDL CHOLESTEROL 42 mg/dl (40-60); LDL CHOLESTEROL 58 mg/dL (9-159); POTASSIUM 4.6 mmol/L (3.5-5.1); SGOT/AST 30 IU/L (3-35); SGPT/ALT 37 U/L (12-78); SODIUM 137 mmol/L (136-145); TOTAL PROTEIN 8.7 gm/dL (6.4-8.2); TRIGLYCERIDES 193 mg/dl (<150); URIC ACID 6.8 mg/dL (3.5-7.2); VLDL CHOLESTEROL 39 mg/dL (6-40)
== END | disposition home or self-care (01) ==
LOC: LAB 09:24
PROVIDERS: ATTEND Nurse Practitioner Family
DX: I10 Essential (primary) hypertension (principal); M10.9 Gout, unspecified; R73.01 Impaired fasting glucose

== ENCOUNTER → 2020-09-06 | Outpatient (CLI) | payer OTHER | END | disposition home or self-care (01) | LOC: CARD 08:19 | PROVIDERS: ATTEND Internal Medicine Cardiovascular Disease | DX: I34.0 Nonrheumatic mitral (valve) insufficiency (principal); I50.22 Chronic systolic (congestive) heart failure; I51.3 Intracardiac thrombosis, not elsewhere classified; I51.7 Cardiomegaly ==

== ENCOUNTER → 2021-04-30 | Outpatient (CLI) | payer OTHER | END | disposition home or self-care (01) | LOC: RAD 10:20 | PROVIDERS: ATTEND Nurse Practitioner Family | DX: R10.9 Unspecified abdominal pain (principal) ==

== ENCOUNTER → 2021-05-03 | Outpatient (CLI) | payer OTHER ==
[2021-05-03 08:57] LABS: CREATININE 1.17 mg/dL (0.70-1.30)
== END | disposition home or self-care (01) ==
LOC: LAB 08:24
PROVIDERS: ATTEND Surgery
DX: Z01.818 Encounter for other preprocedural examination (principal)

== ENCOUNTER → 2021-05-04 | Outpatient (CLI) | payer OTHER | END | disposition home or self-care (01) | LOC: CT 04:55 | PROVIDERS: ATTEND Surgery | DX: K82.9 Disease of gallbladder, unspecified (principal) ==

== ENCOUNTER → 2021-05-11 | Outpatient (CLI) | payer OTHER | END | disposition home or self-care (01) | LOC: US 08:26 | PROVIDERS: ATTEND Nurse Practitioner Family | DX: K76.0 Fatty (change of) liver, not elsewhere classified (principal); R10.9 Unspecified abdominal pain; R93.2 Abnormal findings on diagnostic imaging of liver and biliary tract; E27.8 Other specified disorders of adrenal gland; K80.80 Other cholelithiasis without obstruction; E27.9 Disorder of adrenal gland, unspecified ==

== ENCOUNTER → 2021-05-28 | Day surgery (SDC) | payer OTHER ==
[~2021-05-28] VITALS: Ht 187.9 cm; Wt 97.5 kg
[~2021-05-28] MED LIST changes: +ALLOPURINOL100 MG PO; +VITAMIN D3125 MCG PO; +VITAMIN E180 MG PO
[2021-05-28 07:43] VITALS: BP 110/84
[2021-05-28 08:52] VITALS: BP 98/69
[2021-05-28 09:05] VITALS: BP 106/79
[2021-05-28 09:22] VITALS: BP 106/77
== END | disposition home or self-care (01) ==
LOC: SDC 05-24 08:45
PROVIDERS: ATTEND Surgery
DX: Z12.11 Encounter for screening for malignant neoplasm of colon (principal); K63.5 Polyp of colon; K21.9 Gastro-esophageal reflux disease without esophagitis; I25.2 Old myocardial infarction; Z86.718 Personal history of other venous thrombosis and embolism; I10 Essential (primary) hypertension; I25.10 Atherosclerotic heart disease of native coronary artery without angina pectoris; Z79.899 Other long term (current) drug therapy

== ENCOUNTER → 2021-07-16 | Outpatient (CLI) | payer OTHER | END | disposition home or self-care (01) | LOC: CT 10:58 | PROVIDERS: ATTEND Internal Medicine Critical Care Medicine | DX: R91.8 Other nonspecific abnormal finding of lung field (principal) ==

== ENCOUNTER → 2022-01-16 | Outpatient (CLI) | payer OTHER ==
[2022-01-16 09:33] LABS: CHLORIDE 104 mmol/L (98-107); POTASSIUM 4.3 mmol/L (3.5-5.1); SODIUM 138 mmol/L (136-145)
[2022-01-16 09:36] LABS: ALKALINE PHOSPHATASE 113 U/L (45-117); BUN 14 mg/dl (7-24); CHOLESTEROL 126 mg/dL (<200); CREATININE 1.19 mg/dL (0.70-1.30); LDL CHOLESTEROL 45 mg/dL (9-159); SGOT/AST 32 IU/L (3-35); SGPT/ALT 44 U/L (12-78); TOTAL PROTEIN 7.8 gm/dL (6.4-8.2); TRIGLYCERIDES 213 mg/dl (<150); URIC ACID 6.4 mg/dL (3.5-7.2)
== END | disposition home or self-care (01) ==
LOC: LAB 08:28
PROVIDERS: ATTEND Nurse Practitioner Family
DX: I10 Essential (primary) hypertension (principal); M10.9 Gout, unspecified; E78.00 Pure hypercholesterolemia, unspecified; E55.9 Vitamin D deficiency, unspecified

== ENCOUNTER → 2022-01-25 | Outpatient (CLI) | payer OTHER | END | disposition home or self-care (01) | LOC: CT 09:00 | PROVIDERS: ATTEND Internal Medicine Critical Care Medicine | DX: R91.1 Solitary pulmonary nodule (principal); D35.00 Benign neoplasm of unspecified adrenal gland; E27.9 Disorder of adrenal gland, unspecified; Z68.28 Body mass index [BMI] 28.0-28.9, adult ==

== ENCOUNTER → 2022-08-07 | Outpatient (CLI) | payer OTHER | END | disposition home or self-care (01) | LOC: CT 00:59 | PROVIDERS: ATTEND Internal Medicine Critical Care Medicine | DX: R91.1 Solitary pulmonary nodule (principal); E27.9 Disorder of adrenal gland, unspecified; Z68.28 Body mass index [BMI] 28.0-28.9, adult ==

== ENCOUNTER → 2022-09-12 | Outpatient (CLI) | payer OTHER ==
[~2022-09-12] MED LIST changes: +NITROSTAT0.4 MG SL
== END | disposition home or self-care (01) ==
LOC: CARD 01:08
PROVIDERS: ATTEND Internal Medicine Cardiovascular Disease
DX: Z01.810 Encounter for preprocedural cardiovascular examination (principal); I25.10 Atherosclerotic heart disease of native coronary artery without angina pectoris; I50.22 Chronic systolic (congestive) heart failure; R93.1 Abnormal findings on diagnostic imaging of heart and coronary circulation

== ENCOUNTER → 2022-11-04 | Outpatient (CLI) | payer OTHER ==
[2022-11-04 09:04] LABS: ALKALINE PHOSPHATASE 118 U/L (46-116); BUN 15 mg/dl (9-23); CHLORIDE 103 mmol/L (98-107); CHOLESTEROL 127 mg/dL (<200); LDL CHOLESTEROL 55 mg/dL (9-159); POTASSIUM 5.3 mmol/L (3.4-5.1); SGPT/ALT 36 U/L (10-49); TOTAL PROTEIN 7.9 gm/dL (6.0-8.0); TRIGLYCERIDES 188 mg/dl (<150); URIC ACID 6.9 mg/dL (3.7-9.2)
== END | disposition home or self-care (01) ==
LOC: LAB 08:03
PROVIDERS: ATTEND Nurse Practitioner Family
DX: E78.00 Pure hypercholesterolemia, unspecified (principal); K76.0 Fatty (change of) liver, not elsewhere classified; I10 Essential (primary) hypertension; E55.9 Vitamin D deficiency, unspecified

== ENCOUNTER → 2022-11-13 | Outpatient (CLI) | payer OTHER | END | disposition home or self-care (01) | LOC: LAB 10:16 | PROVIDERS: ATTEND Nurse Practitioner Primary Care | DX: Z12.5 Encounter for screening for malignant neoplasm of prostate (principal); E87.5 Hyperkalemia; R73.9 Hyperglycemia, unspecified ==

== ENCOUNTER → 2023-02-18 | Outpatient (CLI) | payer OTHER | END | disposition home or self-care (01) | LOC: US 02:24 | PROVIDERS: ATTEND Nurse Practitioner Primary Care | DX: N50.89 Other specified disorders of the male genital organs (principal); K40.90 Unilateral inguinal hernia, without obstruction or gangrene, not specified as recurrent; N43.3 Hydrocele, unspecified ==

== ENCOUNTER → 2023-03-26 | Outpatient (CLI) | payer OTHER ==
[2023-03-26 11:16] LABS: LDH 263 U/L (120-246)
[2023-03-26 11:20] LABS: BETA-HCG, TUMOR MARKER < 3.0 mIU/mL (0-3)
== END | disposition home or self-care (01) ==
LOC: LAB 10:21
PROVIDERS: ATTEND Urology
DX: N50.9 Disorder of male genital organs, unspecified (principal)

== ENCOUNTER → 2023-04-04 | Outpatient (CLI) | payer OTHER | END | disposition home or self-care (01) | LOC: CT 00:05 | PROVIDERS: ATTEND Urology | DX: N43.3 Hydrocele, unspecified (principal); K76.0 Fatty (change of) liver, not elsewhere classified; R91.8 Other nonspecific abnormal finding of lung field; D35.00 Benign neoplasm of unspecified adrenal gland; N50.89 Other specified disorders of the male genital organs; M47.816 Spondylosis without myelopathy or radiculopathy, lumbar region; M16.0 Bilateral primary osteoarthritis of hip; K40.90 Unilateral inguinal hernia, without obstruction or gangrene, not specified as recurrent; K57.30 Diverticulosis of large intestine without perforation or abscess without bleeding ==

== ENCOUNTER → 2023-04-23 | Outpatient (CLI) | payer OTHER ==
[2023-04-23 13:04] LABS: BASO # 0.1 10*3/uL (0.0-0.1); BASO % 1.2 % (0.0-1.0); EOS # 0.2 10*3/uL (0.0-0.4); EOS % 2.8 % (1.0-4.0); HEMATOCRIT 51.3 % (42.0-52.0); LYMPH # 1.5 10*3/uL (1.3-4.4); LYMPH % 21.7 % (27.0-41.0); MEAN CELL VOLUME 97.3 fl (80.0-94.0); MEAN CORPUSCULAR HGB 31.5 pg (27.0-31.0); MEAN CORPUSCULAR HGB CONC 32.4 g/dl (33.0-37.0); MEAN PLATELET VOLUME 9.1 fl (9.6-12.3); MONO # 0.5 10*3/uL (0.1-1.0); NEUT # 4.5 10*3/uL (2.3-7.9); NEUT % 66.9 % (47.0-73.0); PLATELET COUNT AUTOMATED 204 10*3/uL (130-400); RED BLOOD COUNT 5.27 10*6/uL (4.50-5.90); RED CELL DISTRI WIDTH 13.3 % (0-14.5); WHITE BLOOD COUNT 6.7 10*3/uL (4.8-10.8)
[2023-04-23 13:22] LABS: ALKALINE PHOSPHATASE 113 U/L (46-116); BUN 11 mg/dl (9-23); CHLORIDE 103 mmol/L (98-107); POTASSIUM 4.8 mmol/L (3.4-5.1); SGPT/ALT 37 U/L (5-49)
[2023-04-24 12:07] LABS: ALDOLASE 4.8 U/L (3.3-10.3)
== END | disposition home or self-care (01) ==
LOC: LAB 11:13
PROVIDERS: ATTEND Urology
DX: D35.00 Benign neoplasm of unspecified adrenal gland (principal)

== ENCOUNTER → 2023-04-25 | Outpatient (CLI) | payer OTHER ==
[2023-04-29 09:06] LABS: CREATININE, RANDOM URINE 64.4 mg/dL (Not Estab.)
[2023-04-30 16:07] LABS: NORMETANEPHRINE URINE 197 ug/L (Undefined); URINE METANEPHRINE 80 ug/L (Undefined); URINE METANEPHRINE, 24 HR 160 ug/24 hr (58-276); URINE NORMETANEPHRINE 24HR 394 ug/24 hr (156-729)
[2023-05-01 17:06] LABS: VMA RANDOM 1.5 mg/L (Undefined)
== END | disposition home or self-care (01) ==
LOC: LAB 08:28
PROVIDERS: ATTEND Urology
DX: E27.9 Disorder of adrenal gland, unspecified (principal)

== ENCOUNTER → 2023-05-06 | Outpatient (CLI) | payer OTHER | END | disposition home or self-care (01) | LOC: CT 01:03 | PROVIDERS: ATTEND Urology | DX: E27.9 Disorder of adrenal gland, unspecified (principal); K40.90 Unilateral inguinal hernia, without obstruction or gangrene, not specified as recurrent; K76.0 Fatty (change of) liver, not elsewhere classified ==

== ENCOUNTER → 2023-09-05 | Outpatient (CLI) | payer OTHER ==
[2023-09-05 09:53] LABS: BASO # 0.1 10*3/uL (0.0-0.1); BASO % 1.1 % (0.0-1.0); EOS # 0.2 10*3/uL (0.0-0.4); EOS % 3.2 % (1.0-4.0); HEMATOCRIT 48.6 % (42.0-52.0); LYMPH # 1.3 10*3/uL (1.3-4.4); LYMPH % 22.7 % (27.0-41.0); MEAN CELL VOLUME 97.8 fl (80.0-94.0); MEAN CORPUSCULAR HGB 32.4 pg (27.0-31.0); MEAN CORPUSCULAR HGB CONC 33.1 g/dl (33.0-37.0); MONO # 0.3 10*3/uL (0.1-1.0); MONO % 5.3 % (3.0-9.0); NEUT # 3.8 10*3/uL (2.3-7.9); NEUT % 67.5 % (47.0-73.0); PLATELET COUNT AUTOMATED 185 10*3/uL (130-400); RED BLOOD COUNT 4.97 10*6/uL (4.50-5.90); RED CELL DISTRI WIDTH 14.2 % (0-14.5); WHITE BLOOD COUNT 5.6 10*3/uL (4.8-10.8)
[2023-09-05 10:16] LABS: ALKALINE PHOSPHATASE 122 U/L (46-116); BUN 11 mg/dl (9-23); CHLORIDE 102 mmol/L (98-107); LDH 187 U/L (120-246); POTASSIUM 3.9 mmol/L (3.4-5.1); SGPT/ALT 28 U/L (5-49); TOTAL PROTEIN 7.8 gm/dL (6.0-8.0); URIC ACID 4.6 mg/dL (3.7-9.2)
[2023-09-08 15:06] LABS: A/G RATIO 1.3 (0.7-1.7); ALBUMIN 4.1 g/dL (2.9-4.4); ALPHA-1-GLOBULIN 0.2 g/dL (0.0-0.4); ALPHA-2-GLOBULIN 0.8 g/dL (0.4-1.0); FREE KAPPA LIGHT CHAINS 22.8 mg/L (3.3-19.4); FREE LAMBDA LIGHT CHAINS 10.2 mg/L (5.7-26.3); GAMMA GLOBULIN 1.2 g/dL (0.4-1.8); GLOBULIN, TOTAL 3.2 g/dL (2.2-3.9); IMMUNOGLOBULIN G, QNT 1213 mg/dL (603-1613); IMMUNOGLOBULIN M, QNT 82 mg/dL (20-172); KAPPA/LAMBDA RATIO 2.24 (0.26-1.65); M-SPIKE Not Observed g/dL (Not Observed); TOTAL PROTEIN, SERUM 7.3 g/dL (6.0-8.5)
[2023-09-09 18:07] LABS: BETA-2 MICROGLOBULIN 1.6 mg/L (0.6-2.4)
== END ==
LOC: LAB 08:48
PROVIDERS: ATTEND Internal Medicine Hematology
DX: R59.1 Generalized enlarged lymph nodes (principal)

== ENCOUNTER → 2024-01-01 | Outpatient (CLI) | payer OTHER ==
[2024-01-01 08:47] LABS: BASO # 0.1 10*3/uL (0.0-0.1); BASO % 0.9 % (0.0-1.0); EOS # 0.3 10*3/uL (0.0-0.4); EOS % 3.8 % (1.0-4.0); HEMATOCRIT 47.5 % (42.0-52.0); LYMPH # 1.5 10*3/uL (1.3-4.4); LYMPH % 21.9 % (27.0-41.0); MEAN CELL VOLUME 97.7 fl (80.0-94.0); MEAN CORPUSCULAR HGB 32.5 pg (27.0-31.0); MEAN CORPUSCULAR HGB CONC 33.3 g/dl (33.0-37.0); MEAN PLATELET VOLUME 8.7 fl (9.6-12.3); MONO # 0.5 10*3/uL (0.1-1.0); MONO % 7.2 % (3.0-9.0); NEUT # 4.5 10*3/uL (2.3-7.9); NEUT % 65.9 % (47.0-73.0); PLATELET COUNT AUTOMATED 194 10*3/uL (130-400); RED BLOOD COUNT 4.86 10*6/uL (4.50-5.90); RED CELL DISTRI WIDTH 13.8 % (0-14.5); WHITE BLOOD COUNT 6.9 10*3/uL (4.8-10.8)
[2024-01-01 09:16] LABS: ALKALINE PHOSPHATASE 107 U/L (46-116); BUN 8 mg/dl (9-23); CHLORIDE 101 mmol/L (98-107); FREE T4 1.26 ng/dl (0.89-1.76); LDH 216 U/L (120-246); POTASSIUM 4.8 mmol/L (3.4-5.1); SGPT/ALT 33 U/L (5-49); TOTAL PROTEIN 7.8 gm/dL (6.0-8.0); URIC ACID 4.9 mg/dL (3.7-9.2)
== END | disposition home or self-care (01) ==
LOC: LAB 08:22
PROVIDERS: ATTEND Internal Medicine Hematology
DX: R59.1 Generalized enlarged lymph nodes (principal)

== ENCOUNTER → 2024-01-02 | Outpatient (CLI) | payer OTHER ==
[~2024-01-02] MED LIST changes: +IOHEXOL 300 MG/ML 100 ML VIAL IV ONE
== END | disposition home or self-care (01) ==
LOC: CT 02:10
PROVIDERS: ATTEND Internal Medicine Hematology
DX: K76.0 Fatty (change of) liver, not elsewhere classified (principal); I25.10 Atherosclerotic heart disease of native coronary artery without angina pectoris; K80.20 Calculus of gallbladder without cholecystitis without obstruction; K40.90 Unilateral inguinal hernia, without obstruction or gangrene, not specified as recurrent; R59.1 Generalized enlarged lymph nodes